=== PATIENT | female | born 1975 | race Caucasian/White ===

== ENCOUNTER 2016-12-09 16:34 | Observation (INO) | payer OTHER ==
--- NOTE | ~2016-12-09 | DS ---
Discharge Summary [address] [place]. [address] NAME: KIERRA THOMAS : 73 STATUS : DIS Bry PAT#: [id number] AGE: 41 ADM/REG DATE : 12/09/16 MR#: [id number] REPORT SERV DATE: 12/14/16 DICTATED BY: NIRAV GREEN DATE: 12/11/16 REPORT STATUS : Draft TRANSCRIBED BY: MODL DATE: 12/11/16 ADMISSION DATE: 12/09/2016 DISCHARGE DATE: 12/11/2016 PRINCIPAL DIAGNOSIS: Severe migraine with aura. SECONDARY DIAGNOSES: History of pseudotumor cerebri, possible adverse drug reaction to hydroxychloroquine, is having rheumatoid arthritis and Sjogren syndrome. HISTORY OF PRESENT ILLNESS: Please see Dr. Alvarez's dictation, 12/09/2016. HOSPITAL COURSE: Admitted with severe migraines with visual loss including different than her typical aura with peripheral visual flashes that has actually involved diminished visual acuity in the central vision. This was transient although the headache continued. She actually received a dose of dihydroergotamine and was begun upon Topamax. The patient still had a severe headache on 12/10/2016, a dose of Phenergan was given, and she was found to have significant improvement in her headache by 12/11/2016. MRI was negative. Did not show evidence of pseudotumor cerebri and the funduscopic exam also showed no papilledema. She would follow up with Neurology at [facility] where she had been seen before for possible repeat lumbar puncture as she has had therapeutic benefit in the past. Was given a prescription for Topamax at a titrating dose starting at 25 q.h.s., but it was expected therapeutic dose at 50 mg b.i.d. DICTATED BY: Bernie Jain/KAILEY Nirav Green M.D. / [id number] CC: Nirav Green M.D. [facility]
--- NOTE | ~2016-12-09 | HP ---
History And Physical [id number] [facility] [place]. [address] NAME: KIERRA THOMAS : 73 STATUS : ADM Bry PAT#: [id number] AGE: 41 ADM/REG DATE : 12/09/16 MR#: [id number] REPORT SERV DATE: 12/10/16 DICTATED BY: ASHISH MCKOY DATE: 12/09/16 REPORT STATUS : Draft TRANSCRIBED BY: MODCristina DATE: 12/09/16 DATE OF ADMISSION: 12/09/2016 CHIEF COMPLAINT: A 41-year-old female, presenting with severe migraine headache, confusion, loss of vision, aphasia. HISTORY OF PRESENT ILLNESS: The patient's history was obtained through an interview with the patient and her . The patient has chronic migraine headaches where she states that "I have a headache that is always there" affecting her on a daily basis, usually of 3 to 4/10 severity, most often affecting the left side of her head. It is in this context about noon today while she was at work, she suddenly felt a sensation "like the sun was hitting my eyes" and began to have blurring of vision. Usually, when she has migraine visual changes, they affect her peripheral vision but this time it seemed to affect the mid visual hendrix and then radiate outward bilaterally. Then, she became increasingly confused, had worsening headache consistent with previous migraine headaches. The headache being exacerbated by light and noise. She lost memory, could not name her co-workers and developed aphasia and had something "like a panic attack." She tried to take Relpax as an abortive measure for her migraine, but it did not seem to help and then was given a dose of Xanax, Tylenol, and a cup of black coffee and then sent to the emergency department. She describes the headache as in the left side of her head mostly, going through her worship and into her eye; a heavy, aching, throbbing, sometimes pressure-like quality. It was 10+ out of 10 severity at first. The patient was given medications at her workplace and then given a dose of IV Toradol here and her headache has decreased to an 8/10 severity only. She has had nausea, but no vomiting. She has had dizziness and lightheadedness. No double vision. No dysarthria. No difficulty swallowing. No hemiparesis. She has had recent arthritis related to her rheumatoid arthritis and Sjogren's particularly affecting her wrists and knees with swelling. She had noticed worsening of dry mouth and dry eyes. No diarrhea. No abdominal pain. Mild fevers and chills. No cough. Slight shortness of breath. Has had recent allergy problems and sinus drainage. REVIEW OF SYSTEMS: Otherwise, a 14-point review of systems was obtained and was negative. PAST MEDICAL HISTORY: History And Physical [address] [address] NAME: KIERRA THOMAS : 73 STATUS : ADM Bry PAT#: [id number] AGE: 41 ADM/REG DATE : 12/09/16 MR#: [id number] REPORT SERV DATE: 12/10/16 DICTATED BY: ASHISH MCKOY DATE: 12/09/16 REPORT STATUS : Draft TRANSCRIBED BY: KAILEY DATE: 12/09/16 1. Rheumatoid arthritis. Negative anti-CCP though. Seen by Dr. Galdamez. On Plaquenil. 2. Sjogren's with positive SSA, positive SSB. 3. Thrombocytopenia and leukopenia. Followed by Dr. Jordy Mendez. 4. Migraine headaches. 5. 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 6. No cardiac disease. No lung disease. 7. Previous lumbar puncture about six or seven years ago she thinks that resulted in complete resolution of her headache for about a six month period of time before it began to come back. So question, an atypical pseudotumor cerebri. PAST SURGICAL HISTORY: 1. x3. 2. Hysterectomy with unilateral oophorectomy. ALLERGIES: SULFA. SOCIAL HISTORY: No tobacco abuse. No alcohol abuse. She was born in [place] as an citizen, but has lived in the [facility] for twenty and half years. She has been to her for 21 years. They have children, ages 12, 14, and 17. 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 She lives in [place], [place]. FAMILY HISTORY: Father with thyroid disease. Sister and mother with migraine headaches. Sister with lupus. CURRENT MEDICATIONS: Include albuterol inhaler, Fioricet every 6 hours p.r.n., Zyrtec 10 mg p.o. daily, eye drops, Relpax 40 mg p.r.n., Plaquenil alternating doses of 200 and 400 mg every other day, ibuprofen p.r.n., Synthroid 50 mcg p.o. daily, fish oil, vitamin D. PHYSICAL EXAMINATION: VITAL SIGNS: Temperature 98.4, pulse 85, blood pressure 130/79, respiratory rate 18, O2 saturation 100% on room air. GENERAL: An ill-appearing female, in evidence of distress secondary to headache. HEENT: Pupils equal, round, and reactive to light. No conjunctival pallor. No scleral icterus. Nares are patent. Oropharynx is clear of obstruction. Moist mucous membranes. NECK: Trachea midline. No thyromegaly. LYMPH: No cervical lymphadenopathy. No supraclavicular lymphadenopathy. RESPIRATORY: Clear to auscultation at bases. No wheezes, rales, or rhonchi. Normal respiratory effort. CARDIOVASCULAR: Regular rate and rhythm. No murmurs, rubs, or gallops. No extremity edema is appreciated. ABDOMEN: Soft, nontender, nondistended. Normal bowel sounds auscultated throughout. No hepatosplenomegaly. DERMATOLOGICAL: Warm and dry extremities. No pallor. No cyanosis. PSYCHIATRIC: Normal affect. Good mood. Alert and oriented x3. LABORATORY DATA: White blood count 3.9, hemoglobin 13, hematocrit 39, platelets 136. Sodium 139, potassium 3.7, chloride 107, bicarb 31, BUN 10, creatinine 0.8, glucose 102. Serum History And Physical [address] [address] NAME: KIERRA THOMAS : 73 STATUS : ADM Bry PAT#: [id number] AGE: 41 ADM/REG DATE : 12/09/16 MR#: [id number] REPORT SERV DATE: 12/10/16 DICTATED BY: ASHISH MCKOY DATE: 12/09/16 REPORT STATUS : Draft TRANSCRIBED BY: KAILEY DATE: 12/09/16 test negative. Liver enzymes within normal limits. Urinalysis negative for infection urine. STUDIES: CT scan of the brain without contrast shows no acute intracranial process. ASSESSMENT AND PLAN: 1. Complex atypical migraine with encephalopathy, aphasia, and transient vision loss. Some relief with Toradol IV. We will obtain Neurology consult. I have attempted to contact Neurology without any return call, but we will try initial doses of IV dihydroergotamine. 2. Possible atypical pseudotumor cerebri. The patient has no signs of obesity or a typical physical presentation for this condition, but several years ago had a lumbar puncture with possible reported elevated pressures and complete resolution of headaches for about a six month period of time. May consider a diagnostic and therapeutic lumbar puncture? but we will ask Neurology to consult. 3. Rheumatoid arthritis with Sjogren's. Negative anti-CCP. Has been seen outpatient by Dr. Gloria Galdamez, on [facility]. Consider ruling out acute on chronic cerebritis? by checking an MRI of the brain with and without contrast. Check an ESR, CRP, BAO titer, rheumatoid factor titer. Uncontrolled rheumatological condition? 4. Linnette's thyroid disease. Check thyroid panel. 5. Chronic thrombocytopenia and leukopenia. KPL/MODL Ashish Mckoy M.D. / [id number] CC: Brennan Evangelista M.D. Bernie Pickard M.D.
[2016-12-09 16:09] LABS: BASOPHILS 0.3 %; BASOPHILS ABSOLUTE 0.01 10/3/uL (0.0-0.16); EOSINOPHILS 0.8 %; EOSINOPHILS ABSOLUTE 0.03 10/3/uL (0.0-0.53); HEMATOCRIT 38.8 % (36.0-48.0); IMMATURE GRANULOCYTES 0.3 %; IMMATURE GRANULOCYTES ABSOLUTE 0.01 10/3/uL (0.0-0.11); LYMPHOCYTES 27.8 %; LYMPHOCYTES ABSOLUTE 1.07 10/3/uL (0.67-4.30); MEAN CORPUS HGB CONC 33.5 g/dL (32.0-36.0); MEAN CORPUSCULAR HEMOGLOB 31.4 pg (26.0-34.0); MEAN CORPUSCULAR VOLUME 93.7 fL (80-100); MEAN PLATELET VOLUME 13.1 fL (9.2-13.0); MONOCYTES 10.9 %; MONOCYTES ABSOLUTE 0.42 10/3/uL (0.21-1.20); NEUTROPHILS 59.9 %; NEUTROPHILS ABSOLUTE 2.31 10/3/uL (2.02-8.40); PLATELET COUNT 136 10/3/uL (150-400); RBC DISTRIBUTION WIDTH 12.4 % (12.0-16.0); RED CELL COUNT 4.14 10/6/uL (4.0-5.6); WHITE BLOOD CELLS 3.9 10/3/uL (4.5-10.5)
[2016-12-09 16:10] LABS: MANUAL DIFF NO %
[2016-12-09 16:20] LABS: WBC (NOT ORDERED) (RFLEX) 0 (0-5)
[2016-12-09 16:25] LABS: A/G RATIO 1.1 (0.7-1.9); ALBUMIN 3.9 G/DL (3.5-5.0); ALKALINE PHOSPHATASE 76 U/L (45-117); BUN (BLOOD UREA NITROGEN) 10 MG/DL (6-23); CHLORIDE, SERUM 107 MMOL/L (96-112); CO2 (CARBON DIOXIDE) 31 MMOL/L (24-34); CREATININE 0.79 MG/DL (0.55-1.02); GFR AFRICAN AMERICAN 107 ML/MIN (>=60); GFR NON AFRICAN AMERICAN 92 ML/MIN (>=60); GLOBULIN 3.7 G/DL (2.5-4.1); POTASSIUM, SERUM 3.7 MMOL/L (3.5-5.3); SGOT(AST) 21 U/L (5-40); SGPT(ALT) 19 U/L (5-65); SODIUM, SERUM 139 MMOL/L (135-148); TOTAL BILIRUBIN 0.4 MG/DL (0-1.2); TOTAL PROTEIN 7.6 G/DL (6.0-8.5)
[2016-12-09 16:26] LABS: GLUCOSE, SERUM 102 MG/DL (60-99)
[2016-12-09 16:33] LABS: ASCORBIC ACID (UR NOT ORDER) NEG (NEG); BILIRUBIN, URINE NEGATIVE (NEG); ER URINALYSIS TAT 0 Hrs 14 Mins; KETONE, URINE NEGATIVE (NEG); LEUKOCYTE ESTERASE(NOT OR NEG (NEG); NITRITE (URINE) NEG (NEG)
[2016-12-09] MEDS ORDERED: SYN.05 PO (18:45)
[2016-12-09] MEDS ORDERED: PLAQ200B PO ×2 (18:46→18:47)
[2016-12-09] MEDS ORDERED: RELPAX40 MG PO (18:47)
[2016-12-09] MEDS ORDERED: FIORICET 50-301 EACH PO (18:47)
[2016-12-09] MEDS ORDERED: ADVIL PO (18:48)
[2016-12-09] MEDS ORDERED: PROVHFA INH (18:48)
[2016-12-09] MEDS ORDERED: ZYRTEC ALLGY10 MG PO (18:49)
[2016-12-09] MEDS ORDERED: VITAMIN D PO (18:49)
[2016-12-09] MEDS ORDERED: RESTASIS OPH (18:49)
[2016-12-09] MEDS ORDERED: FISH-EPA1000 MG PO (18:50)
[2016-12-10 05:09] LABS: BASOPHILS 0.3 %; BASOPHILS ABSOLUTE 0.01 10/3/uL (0.0-0.16); EOSINOPHILS ABSOLUTE 0.06 10/3/uL (0.0-0.53); HEMATOCRIT 36.9 % (36.0-48.0); HEMOGLOBIN 12.4 g/dL (12.0-16.0); IMMATURE GRANULOCYTES 0.3 %; IMMATURE GRANULOCYTES ABSOLUTE 0.01 10/3/uL (0.0-0.11); LYMPHOCYTES ABSOLUTE 0.97 10/3/uL (0.67-4.30); MEAN CORPUS HGB CONC 33.6 g/dL (32.0-36.0); MEAN CORPUSCULAR HEMOGLOB 31.6 pg (26.0-34.0); MEAN CORPUSCULAR VOLUME 93.9 fL (80-100); MEAN PLATELET VOLUME 13.2 fL (9.2-13.0); MONOCYTES 12.6 %; MONOCYTES ABSOLUTE 0.37 10/3/uL (0.21-1.20); NEUTROPHILS 51.8 %; NEUTROPHILS ABSOLUTE 1.52 10/3/uL (2.02-8.40); PLATELET COUNT 103 10/3/uL (150-400); RBC DISTRIBUTION WIDTH 12.4 % (12.0-16.0); RED CELL COUNT 3.93 10/6/uL (4.0-5.6); WHITE BLOOD CELLS 2.9 10/3/uL (4.5-10.5)
[2016-12-10 05:13] LABS: MANUAL DIFF NO %
[2016-12-10 05:18] LABS: INTERNATIONAL NORMAL RATI 1.2 UNITS (-); PARTIAL THROMBO TIME 28.6 SEC (22.5-37.2); PROTIME (NOT ORD) 14.7 SEC (12.0-14.5)
[2016-12-10 05:34] LABS: A/G RATIO 0.9 (0.7-1.9); ALKALINE PHOSPHATASE 62 U/L (45-117); BUN (BLOOD UREA NITROGEN) 10 MG/DL (6-23); C-REACTIVE PROTEIN < 2.9 MG/L (<8.0); CALCIUM, SERUM 8.1 MG/DL (8.5-10.4); CHLORIDE, SERUM 112 MMOL/L (96-112); CO2 (CARBON DIOXIDE) 24 MMOL/L (24-34); CREATININE 0.72 MG/DL (0.55-1.02); FREE T4 1.07 NG/DL (0.76-1.46); GFR AFRICAN AMERICAN 120 ML/MIN (>=60); GFR NON AFRICAN AMERICAN 103 ML/MIN (>=60); GLOBULIN 3.3 G/DL (2.5-4.1); GLUCOSE, SERUM 90 MG/DL (60-99); POTASSIUM, SERUM 3.9 MMOL/L (3.5-5.3); RHEUMATOID FACTOR QUANT 77 IU/ML (0-15); SGOT(AST) 17 U/L (5-40); SGPT(ALT) 18 U/L (5-65); SODIUM, SERUM 140 MMOL/L (135-148); TOTAL BILIRUBIN 0.2 MG/DL (0-1.2); TOTAL PROTEIN 6.3 G/DL (6.0-8.5)
[2016-12-10 06:24] LABS: SED RATE 17 MM/HR (0-20)
[2016-12-11] MEDS ORDERED: TOPAMAX50 MG PO (10:31)
[2016-12-11] MEDS ORDERED: PR25 PO (10:35)
[2016-12-14 13:05] LABS: ANA PATTERN SPECKLED
== END 2016-12-11 11:10 | disposition home or self-care (01) ==
LOC: ER 16:34 → CDU1 18:36 → CDU2 19:04
PROVIDERS: Emergency Medicine; Internal Medicine
DX: G43.109 Migraine with aura, not intractable, without status migrainosus (principal); M06.9 Rheumatoid arthritis, unspecified; M35.00 Sjogren syndrome, unspecified; D69.6 Thrombocytopenia, unspecified; D72.819 Decreased white blood cell count, unspecified; E06.3 Autoimmune thyroiditis; Z90.710 Acquired absence of both cervix and uterus; Z90.721 Acquired absence of ovaries, unilateral; Z83.49 Family history of other endocrine, nutritional and metabolic diseases; Z88.2 Allergy status to sulfonamides; Z79.899 Other long term (current) drug therapy; Z98.890 Other specified postprocedural states
CPT/HCPCS: 70450; 70553; 80053; 81001; 83735; 84439; 84443; 84703; 85025; 85610; 85652; 85730; 86039; 86140; 86431; 96374; 96375; 96376; 99285; A9270-GY; A9577; G0378; J1110; J1200; J1885; J2405; J2765